=== PATIENT | male | born 1960 | race American Indian/Alaskan Native ===

== ENCOUNTER 2019-05-21 15:30 | Emergency (ER) | payer SELFPAY ==
[2019-05-21 15:50] VITALS: BP 182/95
[2019-05-21 16:06] LABS: Bilirubin,Urine NEG (Negative); Blood,Urine MOD (Negative); Color,Urine Yellow (Yellow); Mucus,Urine FEW /HPF; Urobilinogen,Urine < 2.0 mg/dL (<2.0)
[2019-05-21 16:32] LABS: Basophils # (Auto) 0.1 K/mm3 (0.0-0.1); Eosinophils # (Auto) 0.1 K/mm3 (0.0-0.4); Eosinophils % (Auto) 0.5 % (0.0-4.3); Hemoglobin 12.4 gm/dl (11.8-15.2); Lymphocytes # (Auto) 1.5 K/mm3 (1.2-5.4); Lymphocytes % (Auto) 13.3 % (13.4-35.0); Mean Corpuscular HGB Conc 34 % (32-34); Mean Corpuscular Volume 97 fl (84-94); Monocytes # (Auto) 0.8 K/mm3 (0.0-0.8); Monocytes % (Auto) 7.7 % (0.0-7.3); Platelet Count 499 K/mm3 (140-440); Red Blood Count 3.81 M/mm3 (3.65-5.03); Red Cell Distribution Width 12.3 % (13.2-15.2)
[2019-05-21 16:49] LABS: Alanine Aminotransferase 9 units/L (7-56); Albumin 4.2 g/dL (3.9-5); BUN/Creatinine Ratio 12; Blood Urea Nitrogen 14 mg/dL (9-20); Calcium 9.9 mg/dL (8.4-10.2); Hemolysis Index 6
--- NOTE | 2019-05-21 16:52 | Cat Scan Report ---
CT OF THE ABDOMEN AND PELVIS WITHOUT CONTRAST INDICATION / CLINICAL INFORMATION: Abdominal pain radiating to the back. TECHNIQUE: All CT scans at this location are performed using CT dose reduction for ALARA by means of automated e xposure control. COMPARISON: None available. FINDINGS: ABDOMEN: There is asymmetric soft tissue thickening in the region of the gastric antrum posteriorly, extending into the proximal duodenum. There may be an ulcer involving the antrum and/or duodenal bulb . I see no evidence of bowel obstruction or free air. The gallbladder is significantly distended with out wall thickening or visible gallstones. There are a few tiny nonobstructive renal calculi. The liver, spleen, bile ducts, pancreas and lung bases demonstrate no significant abnormality. No eliza nopathy is seen. PELVIS: The distal ureters and urinary bladder are normal. The prostate gland is not significantly en larged. There is no evidence of appendicitis or diverticulitis. No abnormal mass or fluid collection is seen. I do not identify a hernia. There is moderate spondylosis. IMPRESSION: 1. Probable peptic ulcer disease in the region of the gastric antrum/duodenal bulb. No evidence of lashonda wel obstruction or free air. 2. Distended gallbladder without wall thickening or visible gallstones. 3. Minimal nonobstructive nephrolithiasis bilaterally. Signer Name: Nolan Mccartney MD Signed: 05/21/2019 4:47 PM Workstation Name: [id number]
--- NOTE | 2019-05-21 16:56 | Emergency Department Report ---
ED Abdominal Pain HPI - General Chief Complaint: Abdominal Pain Stated Complaint: ABD PAIN Time Seen by Provider: 05/21/19 16:11 Source: patient Mode of arrival: Ambulatory Limitations: No Limitations - History of Present Illness Initial Comments: This is a 58-year-old male presents the ED complaining of upper abdominal pain for the past week. Patient states that pain is usually resolved when he takes Motrin which she has been doing for the past couple of days. Patient denies fever, nausea, vomiting, diarrhea. Patient states that he does a lot of heavy lifting and is unsure if it is that. Patient does note that he is pain is only localized to his upper abdominal region. Patient states that pain is worsened with eating. MD Complaint: abdominal pain - Related Data Previous Rx's Medication Instructions Recorded Last Taken Type Erythromycin [Erythromycin Ophth 0.5 inch OS Q6H #1 tube 11/29/12 Unknown Rx Oint] Dicyclomine [Bentyl] 20 mg PO TID #20 tablet 05/21/19 Unknown Rx Pantoprazole [Protonix] 40 mg PO BID #30 tablet 05/21/19 Unknown Rx Allergies Allergy/AdvReac Type Severity Reaction Status Date / Time No Known Allergies Allergy Verified 11/29/12 20:40 ED Review of Systems ROS: Stated complaint: ABD PAIN Other details as noted in HPI Comment: All other systems reviewed and negative ED Past Medical Hx - Past Medical History Previous Medical History?: No - Surgical History Past Surgical History?: Yes Additional Surgical History: Pins in left leg - Social History Smoking Status: Current Every Day Smoker Substance Use Type: Marijuana - Medications Home Medications: Home Medications Medication Instructions Recorded Confirmed Last Taken Type Erythromycin [Erythromycin Ophth 0.5 inch OS Q6H #1 tube 11/29/12 Unknown Rx Oint] Dicyclomine [Bentyl] 20 mg PO TID #20 tablet 05/21/19 Unknown Rx Pantoprazole [Protonix] 40 mg PO BID #30 tablet 05/21/19 Unknown Rx ED Physical Exam - General Limitations: No Limitations General appearance: alert, in no apparent distress - Head Head exam: Present: atraumatic, normocephalic - Eye Eye exam: Present: normal appearance - ENT ENT exam: Present: mucous membranes moist - Neck Neck exam: Present: normal inspection - Respiratory Respiratory exam: Present: normal lung sounds bilaterally. Absent: respiratory distress - Cardiovascular Cardiovascular Exam: Present: regular rate, normal rhythm. Absent: systolic murmur, diastolic murmur, rubs, gallop - GI/Abdominal GI/Abdominal exam: Present: soft, normal bowel sounds. Absent: distended, tenderness, guarding, rebound, organomegaly, mass - Rectal Rectal exam: Present: deferred - Extremities Exam Extremities exam: Present: normal inspection - Back Exam Back exam: Present: normal inspection - Neurological Exam Neurological exam: Present: alert, oriented X3, normal gait - Psychiatric Psychiatric exam: Present: normal affect, normal mood - Skin Skin exam: Present: warm, dry, intact, normal color. Absent: rash ED Course Vital Signs 05/21/19 15:46 Temperature 98.1 F Pulse Rate 88 Respiratory 20 Rate Blood Pressure 182/95 O2 Sat by Pulse 99 Oximetry ED Medical Decision Making - Lab Data Result diagrams: 05/21/19 16:04 05/21/19 16:04 Laboratory Last Values WBC 11.1 K/mm3 (4.5-11.0) H 05/21/19 16:04 RBC 3.81 M/mm3 (3.65-5.03) 05/21/19 16:04 Hgb 12.4 gm/dl (11.8-15.2) 05/21/19 16:04 Hct 37.0 % (35.5-45.6) 05/21/19 16:04 MCV 97 fl (84-94) H 05/21/19 16:04 MCH 33 pg (28-32) H 05/21/19 16:04 MCHC 34 % (32-34) 05/21/19 16:04 RDW 12.3 % (13.2-15.2) L 05/21/19 16:04 Plt Count 499 K/mm3 (140-440) H 05/21/19 16:04 Lymph % (Auto) 13.3 % (13.4-35.0) L 05/21/19 16:04 [place] % (Auto) 7.7 % (0.0-7.3) H 05/21/19 16:04 Eos % (Auto) 0.5 % (0.0-4.3) 05/21/19 16:04 Baso % (Auto) 1.0 % (0.0-1.8) 05/21/19 16:04 Lymph # 1.5 K/mm3 (1.2-5.4) 05/21/19 16:04 [place] # 0.8 K/mm3 (0.0-0.8) 05/21/19 16:04 Eos # 0.1 K/mm3 (0.0-0.4) 05/21/19 16:04 Baso # 0.1 K/mm3 (0.0-0.1) 05/21/19 16:04 Seg Neutrophils % 77.5 % (40.0-70.0) H 05/21/19 16:04 Seg Neutrophils # 8.6 K/mm3 (1.8-7.7) H 05/21/19 16:04 Sodium 137 mmol/L (137-145) 05/21/19 16:04 Potassium 3.6 mmol/L (3.6-5.0) 05/21/19 16:04 Chloride 99.6 mmol/L (98-107) 05/21/19 16:04 Carbon Dioxide 15 mmol/L (22-30) L 05/21/19 16:04 Anion Gap 26 mmol/L 05/21/19 16:04 BUN 14 mg/dL (9-20) 05/21/19 16:04 Creatinine 1.2 mg/dL (0.8-1.5) 05/21/19 16:04 Estimated GFR > 60 ml/min 05/21/19 16:04 BUN/Creatinine Ratio 12 % 05/21/19 16:04 Glucose 108 mg/dL (75-100) H 05/21/19 16:04 Calcium 9.9 mg/dL (8.4-10.2) 05/21/19 16:04 Total Bilirubin 0.20 mg/dL (0.1-1.2) 05/21/19 16:04 AST 13 units/L (5-40) 05/21/19 16:04 ALT 9 units/L (7-56) 05/21/19 16:04 Alkaline Phosphatase 86 units/L (35-129) 05/21/19 16:04 Total Protein 8.7 g/dL (6.3-8.2) H 05/21/19 16:04 Albumin 4.2 g/dL (3.9-5) 05/21/19 16:04 Albumin/Globulin Ratio 0.9 % 05/21/19 16:04 Lipase 22 units/L (13-60) 05/21/19 16:04 Urine Color Yellow (Yellow) 05/21/19 15:54 Urine Turbidity Clear (Clear) 05/21/19 15:54 Urine pH 5.0 (5.0-7.0) 05/21/19 15:54 Ur Specific [employer] 1.032 (1.003-1.030) H 05/21/19 15:54 Urine Protein 100 mg/dl mg/dL (Negative) 05/21/19 15:54 Urine Glucose (UA) Neg mg/dL (Negative) 05/21/19 15:54 Urine Ketones Tr mg/dL (Negative) 05/21/19 15:54 Urine Blood Mod (Negative) 05/21/19 15:54 Urine Nitrite Neg (Negative) 05/21/19 15:54 Urine Bilirubin Neg (Negative) 05/21/19 15:54 Urine Urobilinogen < 2.0 mg/dL (<2.0) 05/21/19 15:54 Ur Leukocyte Esterase Neg (Negative) 05/21/19 15:54 Urine WBC (Auto) 2.0 /HPF (0.0-6.0) 05/21/19 15:54 Urine RBC (Auto) 16.0 /HPF (0.0-6.0) 05/21/19 15:54 U Epithel Cells (Auto) < 1.0 /HPF (0-13.0) 05/21/19 15:54 Urine Mucus Few /HPF 05/21/19 15:54 - Radiology Data Radiology results: report reviewed, image reviewed CT OF THE ABDOMEN AND PELVIS WITHOUT CONTRAST INDICATION / CLINICAL INFORMATION: Abdominal pain radiating to the back. TECHNIQUE: All CT scans at this location are performed using CT dose reduction for ALARA by means of automated exposure control. COMPARISON: None available. FINDINGS: ABDOMEN: There is asymmetric soft tissue thickening in the region of the gastric antrum posteriorly, extending into the proximal duodenum. There may be an ulcer involving the antrum and/or duodenal bulb. I see no evidence of bowel obstruction or free air. The gallbladder is significantly distended without wall thickening or visible gallstones. There are a few tiny nonobstructive renal calculi. The liver, spleen, bile ducts, pancreas and lung bases demonstrate no significant abnormality. No adenopathy is seen. PELVIS: The distal ureters and urinary bladder are normal. The prostate gland is not significantly enlarged. There is no evidence of appendicitis or diverticulitis. No abnormal mass or fluid collection is seen. I do not identify a hernia. There is moderate spondylosis. IMPRESSION: 1. Probable peptic ulcer disease in the region of the gastric antrum/duodenal bulb. No evidence of bowel obstruction or free air. 2. Distended gallbladder without wall thickening or visible gallstones. 3. Minimal nonobstructive nephrolithiasis bilaterally. Signer Name: Nolan Mccartney MD Signed: 05/21/2019 4:47 PM Workstation Name: [id number] Transcribed By: RT Dictated By: Nolan Mccartney MD Electronically Authenticated By: Nolan Mccartney MD Signed Date/Time: 05/21/19 4326 - Medical Decision Making This 58-year-old male presents with abdominal pain secondary to gastritis All labs are within normal limits, mild leukocytosis otherwise normal. CT of the abdomen shows no acute findings, see report above Discussed all labs and CT findings with the patient. Patient is in no acute distress throughout ED stay. Patient was comfortably in the ED bed, took a nap while waiting for CT results. Patient understands instructions. 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 Protonix prescribed for patient. Patient states he will follow-up with his primary care physician as well has a rail detector car operator. Discussed soft diet with the patient and brat diet. Patient had a nonemergent ED stay Critical care attestation.: If time is entered above; I have spent that time in minutes in the direct care of this critically ill patient, excluding procedure time. ED Disposition Clinical Impression: Peptic gastritis, Abdominal pain Disposition: DC-01 TO HOME OR SELFCARE Is pt being admited?: No Does the pt Need Aspirin: No Condition: Stable Instructions: Peptic Ulcer (ED), Gastritis (ED), Diet for Ulcers and Gastritis (ED) Additional Instructions: Make sure to follow up with the primary care physician as discussed. Take all your medications as you've been prescribed. Away from spicy food for the next week or so. If you have any worsening symptoms or develop new symptoms please return to ED immediately. Prescriptions: Dicyclomine [Bentyl] 20 mg PO TID #20 tablet Pantoprazole [Protonix] 40 mg PO BID #30 tablet Referrals: PRIMARY CARE, [Primary Care Provider] - 3-5 Days [facility] [Provider Group] - 3-5 Days [facility] [Provider Group] - 3-5 Days [facility] [Provider Group] - 3-5 Days Forms: Accompanied Note, Work/School Release Form(ED) Time of Disposition: 17:45
== END 2019-05-21 18:20 | disposition home or self-care (01) ==
LOC: ED 15:30
DX: K29.60 Other gastritis without bleeding (principal); F17.200 Nicotine dependence, unspecified, uncomplicated; F12.10 Cannabis abuse, uncomplicated; Z79.2 Long term (current) use of antibiotics; Z79.899 Other long term (current) drug therapy; Z98.890 Other specified postprocedural states
CPT/HCPCS: 36415; 74176; 80053; 81001; 83690; 85025